=== PATIENT | male | born 1945 ===

== ENCOUNTER 2018-10-02 10:30 | Day surgery (SDC) | payer MEDICARE, BC ==
[2018-10-02] VITALS (12 sets, daily range): BP systolic 120–140; BP diastolic 66–84
[~2018-10-02] VITALS: Ht 177.8 cm; Wt 93.0 kg
--- NOTE | 2018-10-02 07:39 | Pre-Procedure Note/Attestation ---
Pre-Procedure Note/Attestation Complete Prior to Procedure Planned Procedure: left Procedure Narrative: excision forearm mass Indications for Procedure Pre-Operative Diagnosis: left allison mass Attestation I attest that I discussed the nature of the procedure; its benefits; risks and complications; and alternatives (and the risks and benefits of such alternatives ), prior to the procedure, with the patient (or the patient's legal loss prevention representative). I attest that, if there was a reasonable possibility of needing a blood transfusion, the patient (or the patient's legal loss prevention representative) was given the [facility] standardized written summary, pursuant to the [place] Blood Safety Act ([place] Health and Safety Code # 1645, as amended). I attest that I re-evaluated the patient just prior to the surgery and that there has been no change in the patient's H&P, except as documented below: Larry Underwood MD Oct 02, 2018 07:39
--- NOTE | 2018-10-02 07:40 | Operative Note - PDOC ---
Operative Note Operative Note Pre-op Diagnosis: left allison mass Procedure: see op report Post-op Diagnosis: same as pre-op plus Operative Findings: consistent w/pre-op dx studies Anesthesia: general Specimen: none Complications: none Condition: stable Estimated Blood Loss: none Implant(s) used?: No Larry Underwood MD Oct 02, 2018 07:40
[~2018-10-02 10:30] MED LIST: ceFAZolin 1gm IVPB IVPB ONE; celeBREX 200mg Cap **SURGERY PATIENTS ONLY ORAL ONE; oxyCONTIN 20mg tab ORAL ONE
[2018-10-02] MEDS ORDERED: INDERAL20 MG PO (11:13)
[2018-10-02] MEDS ORDERED: LOVASTATIN40 MG ORAL (11:13)
[2018-10-02] MEDS ORDERED: LOSARTAN POTAS100 MG ORAL (11:13)
[2018-10-02] MEDS ORDERED: ASPIRIN81 M3 PO (11:13)
[2018-10-02] MEDS ORDERED: METFORMIN HCL500 M1 ORAL (11:13)
[2018-10-02] MEDS ORDERED: OMEPRAZOLE20 M3 ORAL (11:13)
[2018-10-02] MEDS ORDERED: celeBREX 200mg Cap **SURGERY PATIENTS ONLY ORAL ONE (11:23)
[2018-10-02] MEDS ORDERED: oxyCONTIN 20mg tab ORAL ONE (11:23)
[2018-10-02] MEDS ORDERED: Bupivacaine w/Epi 0.5% 30ml Vial INJ ONE (11:56)
[2018-10-02] MEDS ORDERED: Lidocaine 1% Plain 30 ml INJ ONE (11:56)
[2018-10-02] MEDS ORDERED: Lidocaine 1% 10mg/ml/Epi 0.005mg/ml 30ml vial INJ ONE (11:56)
[2018-10-02] MEDS ORDERED: fentaNYL 100 mcg/2 mL IV ONE (11:58)
[2018-10-02] MEDS ORDERED: Midazolam 2mg/2ml Inj ONE (11:58)
[2018-10-02] MEDS ORDERED: Lidocaine 1% MPF 10mg/ml 5ml ONE (11:58)
[2018-10-02] MEDS ORDERED: Propofol 200mg/20ml IV ONE (11:58)
[2018-10-02] MEDS ORDERED: LR 1000ml ONE (12:00)
[2018-10-02] MEDS ORDERED: Atropine Sulfate 0.4mg/ml inj ONE (12:00)
[2018-10-02] MEDS ORDERED: Sterile Water Irrig 1000ml IRRIG ONE (12:00)
[2018-10-02] MEDS ORDERED: LR 1000ml 1,000 ML IVLG SCH (12:04)
--- NOTE | 2018-10-02 12:04 | Anethesia Preoperative Eval ---
Anesthesia Pre-op PMH/ROS General Date of Evaluation: Oct 02, 2018 Anesthesiologist: Esha ASA Score: ASA 2 Mallampati Score Class I : Soft palate, uvula, fauces, pillars visible Class II: Soft palate, uvula, fauces visible Class III: Soft palate, base of uvula visible Class IV: Only hard plate visible Mallampati Classification: Class III Surgeon: Kj Diagnosis: Left forearm mass Surgical Procedure: Left forearm mass excision Anesthesia History: none Family History: no anesthesia problems Allergies: Coded Allergies: No Known Allergies (Unverified , 10/02/18) Medications: see eMAR Patient NPO?: Yes NPO Date: Oct 01, 2018 NPO Time: 22:00 Past Medical History Cardiovascular: Reports: HTN, other - HLD; Denies: CAD, LA, valve dz, arrhythmia Pulmonary: Denies: asthma, COPD, TODD, other Gastrointestinal/Genitourinary: Reports: GERD; Denies: CRI, ESRD, other Neurologic/Psychiatric: Denies: dementia, CVA, depression/anxiety, TIA, other Endocrine: Reports: DM; Denies: hypothyroidism, steroids, other HEENT: Denies: cataract (L), cataract (R), glaucoma, OUZINKIE (L), OUZINKIE (R), other Hematology/Immune: Denies: anemia, DVT, bleeding disorder, other Musculoskeletal/Integumentary: Denies: OA, RA, DJD, DDD, edema, other Other: obesity PSxH Narrative: Denies Anesthesia Pre-op Phys. Exam Physician Exam Last Vital Signs Date Time Temp Pulse Resp B/P (MAP) Pulse Ox O2 Delivery O2 Flow Rate FiO2 10/02/18 11:15 Room Air 10/02/18 11:13 97.8 50 18 137/75 99 Constitutional: NAD Cardiovascular: RRR Respiratory: CTA Airway Exam Mallampati Score: Class III MO: limited Neck: heavy spears ROM: limited Anesthesia Pre-op A/P Labs see chart Studies Pre-op Studies: EKG - sr Risk Assessment & Plan Assessment: ASA II Plan: GA vs MAC Status Change Before Surgery: No Pre-Antibiotics Drug: Ancef 2g Given Within 1 Hr of Incision: Yes Kelle Oakley MD Oct 02, 2018 12:04
[2018-10-02] MEDS ORDERED: fentaNYL 100 mcg/2 mL IV PRN (12:15)
[2018-10-02] MEDS ORDERED: Hydromorphone 0.5mg/0.5ml inj IVP PRN (12:15)
[2018-10-02] MEDS ORDERED: Metoclopramide 10mg/2ml Inj IVP PRN (12:15)
[2018-10-02] MEDS ORDERED: DiphenhydrAMINE 50mg/ml Inj IVP PRN (12:15)
[2018-10-02] MEDS ORDERED: Bupivacaine 0.25% Inj 30ml INJ ONE (12:21)
[2018-10-02] MEDS ORDERED: NS Irrig 1000ml IRRIG ONE (12:38)
--- NOTE | 2018-10-02 12:56 | Immediate Post-Op Evaluation ---
Immediate Post-Op Evalulation Immediate Post-Op Evalulation Procedure: Left forearm mass excision Date of Evaluation: Oct 02, 2018 Time of Evaluation: 12:57 IV Fluids: 500 Blood Products: 0 Estimated Blood Loss: min Urinary Output: 0 Blood Pressure Systolic: 120 Blood Pressure Diastolic: 76 Pulse Rate: 68 Respiratory Rate: 18 O2 Sat by Pulse Oximetry: 99 Temperature (Fahrenheit): 97 Pain Score (1-10): 0 Nausea: No Vomiting: No Complications 0 Patient Status: awake, reacts, patent, none Hydration Status: adequate Drug: Ancef 2g Given Within 1 Hr of Incision: Yes Kelle Oakley MD Oct 02, 2018 12:56
--- NOTE | 2018-10-02 12:57 | 48 Hour Post Anesthesia Eval ---
Post Anesthesia Evaluation Procedure: Left forearm mass excision Date of Evaluation: Oct 02, 2018 Airway: patent Nausea: No Vomiting: No Hydration Status: adequate Cardiopulmonary Status: at [place] Mental Status/LOC: patient returned to baseline Post-Anesthesia Complications: 0 Follow-up care needed: ready to discharge Kelle Oakley MD Oct 02, 2018 12:57
--- NOTE | 2018-10-02 19:30 | Operative Note - Dictated ---
DATE OF OPERATION: 10/02/2018 PREOPERATIVE DIAGNOSIS: Left forearm mass. POSTOPERATIVE DIAGNOSIS: Left forearm mass. PROCEDURE: Excision of left forearm mass measuring 1.5 x 2 cm. SURGEON: Larry Underwood M.D. ANESTHESIA: General. INDICATION: The patient is a pleasant gentleman who has had a mass in his forearm. It is interfering with activities to put weight. He elected to undergo excision of the mass after failed aspiration in the office. Risks, limitations, expectations, and complications of the procedure were discussed in detail including possibility of infection, seroma, continued recurrent symptoms, need for future surgery. Risks, limitations, and expectations were discussed. All questions addressed. DESCRIPTION OF PROCEDURE: After informed consent was obtained, the patient was brought to the operating room. The patient was placed under general anesthesia. Left arm was prepped and draped in a sterile manner. Time-out was performed. Esmarch was used to exsanguinate the extremity. Longitudinal incision was then made. Subcutaneous flaps were created along the mass. There was a small puncture in the mass and there was brown granulation tissue consistent like gouty tophi was expressed. At this point, the capsule along the mass was identified and out in its entirety. Wound was copiously irrigated. Skin was closed using 3-0 Monocryl sutures. Compression dressing was applied. The patient was awoken and taken to recovery room with stable vital signs. ESTIMATED BLOOD LOSS: None. COMPLICATIONS: None. SPECIMENS: Left forearm mass. Larry Underwood M.D. DR: Tonia JOB#: [id number] CC:
[2018-10-02] MEDS ORDERED: Tylenol #3 tab (300mg/30mg) ORAL PRN (21:01)
[2018-10-02] MEDS ORDERED: D5 1/2NS 1,000 ML IV SCH (21:01)
[2018-10-02] MEDS ORDERED: HYDROmorphone 1mg/ml Carpuject SUBQ PRN (21:01)
[2018-10-02] MEDS ORDERED: HYDROcodone/Acetamin 5/325 tab ORAL PRN (21:01)
--- NOTE | 2018-10-07 16:49 | Cardiology Report ---
APPROVED REPORT EKG Measurement Heart [id number] Sinus bradycardia with marked sinus arrhythmia Otherwise normal ECG
== END 2018-10-02 11:40 | disposition home or self-care (01) ==
LOC: SUR 10:30
DX: L72.0 Epidermal cyst (principal); R22.32 Localized swelling, mass and lump, left upper limb; I10 Essential (primary) hypertension; E78.5 Hyperlipidemia, unspecified; K21.9 Gastro-esophageal reflux disease without esophagitis; E11.9 Type 2 diabetes mellitus without complications; E66.9 Obesity, unspecified
CPT/HCPCS: 11402; 82962; 93005; J0461; J0690; J2250; J2704; J3010; J3490; 94003; 94150